=== PATIENT | female | born 1990 | race Caucasian/White ===

== ENCOUNTER → 2019-04-17 | Outpatient (CLI) | payer OTHER ==
[~2019-04-17] MED LIST: CONTRAST GIVEN. MC PRN; IOHEXOL 180 MG/ML 10 ML VIAL. IJ ONE
--- NOTE | 2019-04-17 18:41 | RAD ---
Hysterosalpingogram HISTORY: Secondary infertility COMPARISON: None TECHNIQUE: Patient was informed of the risks to include pain, infection, bleeding, allergic reaction. All questions were answered. Patient signed a written consent form for hysterosalpingogram. Patient was placed in a supine position on the fluoroscopy table. External skin surface was cleansed with Betadine solution. Speculum was inserted. Cervix was cleansed with Betadine solution. HSG catheter was inserted and secured with balloon inflation. Contrast was injected during fluoroscopic visualization, 21 cc of Omnipaque 180. The balloon was deflated and catheter removed. Speculum was removed. There were no immediate complications. FINDINGS: Uterus is retroverted. Left fallopian tube is diffusely dilated without demonstrable free spill of contrast during exam. Small right fallopian tube was visualized, some free spill of contrast. Fluoroscopy time: 0.8 minutes, 10 images. IMPRESSION: 1. Left fallopian tube is dilated and apparently occluded distally. Small caliber right fallopian tube is apparently patent. Findings were discussed with nurse in Dr. Thornton's office at conclusion of exam on 04/17/2019. Electronically signed by: Krishna Vinson MD (04/17/2019 6:38 PM) [id number]
== END | disposition home or self-care (01) ==
LOC: RAD 13:27
PROVIDERS: ATTEND Obstetrics & Gynecology
DX: N85.4 Malposition of uterus (principal); N97.2 Female infertility of uterine origin
CPT/HCPCS: 36415; 58340; 74740; 84702; Q9965